=== PATIENT | female | born 1955 | race Caucasian/White ===

== ENCOUNTER 2016-11-23 14:12 | Observation (INO) ==
--- NOTE | 2016-11-23 14:21 | Emergency Department Note ---
Disposition Clinical Impression: Coagulopathy Septic arthritis Qualifiers: Septic arthritis location: hip Septic arthritis organism: due to unspecified organism Laterality: right Qualified Code(s): M00.9 - Pyogenic arthritis, unspecified Disposition: Admitted As Inpatient Condition: Fair Forms: Work/School Release, ED Satisfaction Letter Time of Disposition: 14:31 General Adult HPI - General Chief complaint: ED General Medical Stated complaint: Septic Hip Time Seen by Provider: 11/23/16 14:17 Source: patient, EMS Mode of arrival: EMS Limitations: no limitations Nursing Notes Reviewed: Yes Vital Signs Reviewed: Yes - History of Present Illness HPI Narrative: 61-year-old who has a history of right hip pain was evaluated by orthopedics at [place] they did order an MRI and MRI showed increased bony destructive changes of the right hip. Large right hip joint effusion with surrounding pericapsular muscular edema. Aspiration suggested to exclude septic arthritis. Since white count yesterday was normal her sedimentation rate is significantly elevated as is her C-reactive protein. She was sent here for evaluation patient is on Coumadin for previous episode of A. fib and her INR yesterday was 2.7 we will repeat that today. Pt Subjective Complaint: Hip pain question septic hip Onset (ago): week(s) Location: right, lower extremity Radiation: non-radiation Pain Severity: moderate Quality: aching Consistency: constant Improves with: nothing Worsens with: movement Associated symptoms: Denies: fever/chills - Related Data Home Medications Medication Instructions Recorded Confirmed Multivitamin [Multi-Day Vitamins] 1 each PO DAILY 09/14/16 09/14/16 Pravastatin Sodium 80 mg PO HS 09/14/16 09/14/16 Sertraline [Zoloft] 100 mg PO DAILY 09/14/16 09/14/16 Previous Rx's Medication Instructions Recorded Acetaminophen [Tylenol] 650 mg PO Q6HR PRN #0 tablet 09/19/16 Diltiazem CD (24hr) [Cardizem CD] 300 mg PO DAILY 30 Days 09/19/16 Insulin DETEMIR [Levemir] 20 unit SQ HS [id number] 09/19/16 Insulin LISPRO [HumaLOG] 0 units SQ HS vial 09/19/16 Insulin LISPRO [HumaLOG] 0 units SQ TIDAC vial 09/19/16 Insulin LISPRO [HumaLOG] 7 units SQ TIDWM vial 09/19/16 Nystatin POWDER [Nystop] 1 appl TP BID 30 Days 09/19/16 Omeprazole [PriLOSEC] 20 mg PO DAILY@0630 capsule. 09/19/16 Sertraline [Zoloft] 50 mg PO DAILY tablet 09/19/16 Cyclobenzaprine [Flexeril] 10 mg PO TID@0900,1700,2300 tablet 10/25/16 Gabapentin [Neurontin] 300 mg PO BID #14 capsule 10/25/16 Glimepiride [Amaryl] 3 mg PO DAILY #0 10/25/16 HYDROcodone/Acet 5/325 mg [[place] 1 tab PO Q4HR PRN #40 tablet 10/25/16 5-325 mg] Warfarin [Coumadin] 2 mg PO DAILY@1800 tablet 10/25/16 Warfarin [Coumadin] 5 mg PO DAILY@1800 tablet 10/25/16 Allergies Allergy/AdvReac Type Severity Reaction Status Date / Time metformin Allergy Diarrhea Verified 09/14/16 10:31 Constitutional: Denies: fever, chills, weakness, weight change Eyes: Denies: eye pain, eye discharge, vision change ENT ED: Denies: ear pain, throat pain, dental pain, hearing loss, epistaxis, congestion, dysphagia Cardiovascular: Denies: chest pain, palpitations, dyspnea on exertion, edema, syncope Respiratory: Denies: cough, dyspnea, wheezes, hemoptysis, stridor Gastrointestinal: Denies: abdominal pain, nausea, vomiting, diarrhea, constipation, hematemesis, melena, hematochezia Genitourinary: Denies: dysuria, frequency, hematuria, discharge Musculoskeletal: Reports: arthralgia. Denies: back pain, neck pain, myalgia Integumentary: Denies: rash, abrasion, lesions Neurological: Denies: headache, weakness, numbness, paresthesias, confusion, abnormal gait, vertigo Psychiatric: Denies: anxiety, depression, suicidal thoughts, homicidal thoughts , auditory hallucinations, visual hallucinations Endocrine: Denies: fatigue Hematological/Lymphatic: Denies: easy bleeding, easy bruising Allergic/Immunologic: Denies: facial swelling, urticaria Past Medical History - Past Medical History Medical history: Reports: diabetes, hyperlipidemia, hypertension, other Surgical history: Reports: , carotid endarterectomy, orthopedic, other Psychiatric history: Reports: depression PROTECTIVE SERVICE SPECIALIST history: Reports: no PROTECTIVE SERVICE SPECIALIST history - Social History Smoking Status: Never smoker Smokeless Tobacco Status: No Alcohol use: Reports: rarely Drug use: Reports: none Physical Exam - General Limitations: no limitations General appearance: alert, in no apparent distress - Head Head exam: atraumatic, normocephalic, normal inspection - Eye Eye exam: Present: normal appearance, PERRL, EOMI - ENT ENT exam: normal exam, normal oropharynx, mucous membranes moist - Neck Neck exam: Present: normal inspection, full ROM, trachea midline - Chest Chest inspection: Present: normal inspection, symmetric chest wall rise - Respiratory Respiratory exam: Present: normal lung sounds bilaterally - Cardiovascular Cardiovascular exam: Present: regular rate, normal rhythm, normal heart sounds - Abdominal Exam Abdominal exam: Present: soft, Non-Tender. Absent: tenderness, distention, guarding, rebound, rigidity - Expanded Lower Extremity Exam Hip/Pelvis exam: Present: tenderness, external rotation, internal rotation ( Pain pain) Neurovascular/Tendon exam: Absent: motor deficit, sensory deficit, tendon deficit - Back Exam Back exam: Present: normal inspection, full ROM. Absent: tenderness - Neurological Exam Neurological exam: Present: alert, oriented X3 - Psychiatric Psychiatric exam: Present: normal affect, normal mood - Skin Skin exam: Present: warm, dry, intact, normal color Course - Consultations Consultation #1: Discussed the case with who would like the patient admitted to medicine and have IR tap the hip if septic they will surgically wash it out. Time: 14:29 Consultation #2: I discussed the case with , admit. Time: 14:29 Vital Signs Temperature 98.4 F 11/23/16 14:15 Pulse Rate 90 11/23/16 14:15 Respiratory Rate 18 11/23/16 14:15 Blood Pressure 127/59 11/23/16 14:15 O2 Sat by Pulse Oximetry 95 11/23/16 14:15 Temperature 98.4 F 11/23/16 14:15 Pulse Rate 90 11/23/16 14:15 Respiratory Rate 18 11/23/16 14:15 Blood Pressure 127/59 11/23/16 14:15 O2 Sat by Pulse Oximetry 95 11/23/16 14:15 Oxygen Delivery Oxygen Delivery Room Air Medical Decision Making - Lab Data Result diagrams: 11/23/16 14:27 11/23/16 14:27 Lab Results 11/23/16 11/23/16 11/23/16 Range/Units 14:27 14:27 14:27 WBC 9.1 (4.3-11.1) K/mcL RBC 3.63 L (3.82-4.97) M/mcL Hgb 9.7 L (11.5-15.4) g/dL Hct 32.0 L (35.3-44.9) % MCV 88.2 (83.0-100.0) fL MCH 26.7 L (28.0-33.3) pg MCHC 30.3 L (31.6-35.5) g/dL RDW 16.0 H (11.5-14.5) % Plt Count 417 H (140-400) K/mcL MPV 7.7 L (9.4-12.4) fL Immature Gran % 0.4 (0-4) % Seg Neutrophils % 67.7 % Lymphocytes % 22.7 % Monocytes % 6.6 % Eosinophils % 2.3 % Basophils % 0.3 % Neutrophils # 6.1 (1.6-8.9) K/mcL Lymphocytes # 2.1 (0.6-4.6) K/mcL Monocytes # 0.6 (0.0-1.3) K/mcL Eosinophils # 0.2 (0.0-0.6) K/mcL Basophils # 0.0 (0.0-0.2) K/mcL PT 29.1 H (9.4-12.1) Seconds INR 2.6 APTT 41.1 H (26.0-36.0) Seconds Sodium 140 (136-145) mEq/L Potassium 4.2 (3.5-4.5) mEq/L Chloride 104 (98-109) mEq/L Carbon Dioxide 28 (19-29) mEq/L BUN 23 H (7-20) mg/dL Creatinine 0.60 (0.57-1.11) mg/dL Est GFR ( Amer) > 60 (> 60) Est GFR (Non-Af Amer) > 60 (> 60) BUN/Creatinine Ratio 38 H (6-26) Glucose 112 H (70-99) mg/dL Calculated Osmolality 294 (280-300) Calcium 8.4 L (8.6-10.8) mg/dL
[2016-11-23 14:33] LABS: Basophils % 0.3 %; Eosinophils # 0.2 K/mcL (0.0-0.6); Eosinophils % 2.3 %; Hemoglobin 9.7 g/dL (11.5-15.4); Immature Granulocytes % 0.4 % (0-4); Lymphocytes # 2.1 K/mcL (0.6-4.6); Lymphocytes % 22.7 %; Mean Corpuscular HGB Conc 30.3 g/dL (31.6-35.5); Mean Corpuscular Hemoglobin 26.7 pg (28.0-33.3); Mean Corpuscular Volume 88.2 fL (83.0-100.0); Mean Platelet Volume 7.7 fL (9.4-12.4); Monocytes # 0.6 K/mcL (0.0-1.3); Monocytes % 6.6 %; Neutrophils # 6.1 K/mcL (1.6-8.9); Platelet Count 417 K/mcL (140-400); Red Blood Count 3.63 M/mcL (3.82-4.97); Segmented Neutrophils % 67.7 %
[2016-11-23 14:39] LABS: INR 2.6; Prothrombin Time 29.1 Seconds (9.4-12.1)
[2016-11-23 14:42] LABS: Activated Partial Thrombo Time 41.1 Seconds (26.0-36.0)
[2016-11-23 14:44] LABS: BUN/Creatinine Ratio 38 (6-26); Blood Urea Nitrogen 23 mg/dL (7-20); Calcium 8.4 mg/dL (8.6-10.8); Carbon Dioxide 28 mEq/L (19-29); Chloride 104 mEq/L (98-109); Glucose 112 mg/dL (70-99); Osmolality,Calculated 294 (280-300); Potassium 4.2 mEq/L (3.5-4.5); Sodium 140 mEq/L (136-145); eGFR For African Americans > 60 (> 60); eGFR For Non-African Americans > 60 (> 60)
[2016-11-23] MEDS ORDERED: Piperacillin/Tazobactam 3.375 GM in D5% in Water (Mini-Bag+) 100 ML IVPB ONE (15:00)
[2016-11-23] MEDS ORDERED: Ondansetron 4 MG/2 ML VIAL IVP PRN (16:50)
[2016-11-23] MEDS ORDERED: Acetaminophen 325 MG TABLET PO PRN (16:50)
[2016-11-23] MEDS ORDERED: Mag Hydrox/Al Hydrox/Simeth 30 ML UDC PO PRN (16:50)
[2016-11-23] MEDS ORDERED: *HR* HYDROcodone/Acet 5/325 mg TABLET PO PRN (16:50)
[2016-11-23] MEDS ORDERED: MOM Conc 10 ML UD.LIQ PO PRN (16:50)
[2016-11-23] MEDS ORDERED: Naloxone 0.4 MG/ML INJ IVP PRN (16:50)
[2016-11-23] MEDS ORDERED: D5% in Water 1,000 ML IV PRN (16:54)
[2016-11-23] MEDS ORDERED: 0.9 % Sodium Chloride 1,000 ML IVC SCH (17:00)
--- NOTE | 2016-11-23 17:05 | Internal Med History&Physical ---
<Lesley German - Last Filed: 11/23/16 17:02> Date of Encounter: 11/23/16 Time of Encounter: 16:35 Assessment and Plan (1) Septic arthritis Current visit: Yes Status: Acute Pt has been in an ECF for 1 month for rehab due to septic toe, pneumonia, and a- fib, for which she was inpatient at [facility] for 30 days. She has been complaining of not being able to move her leg since she arrived at the intermediate. R hip MRI from today shows deformity of R femoral head with remodeling of he R acetabulum. Large joint effusion and pericapsular edema, as well as edema in the surrounding musculature, suggestive of septic joint. Pt states that she does not feel pain. WBC 9.1, however CRP was 29 two days ago. Holding Warfarin until INR is less than 1.5 for IR aspiration. Zosyn 3.375g IV q8h Vancomycin 1 gram IV q12 hours Qualifiers: Septic arthritis location: hip Septic arthritis organism: due to unspecified organism Laterality: right Qualified Code(s): M00.9 - Pyogenic arthritis, unspecified (2) Coagulopathy Current visit: Yes Status: Acute INR 2.6. Holding Warfarin until INR less than 1.5 for IR. Warfarin for a-fib. (3) Diabetes mellitus Current visit: No Status: Chronic A1c 6.6% 10/31/16, serum glucose 112 today. Continue Levemir Sliding scale insulin Accucheck achs Diabetic diet Qualifiers: Diabetes mellitus type: type 2 Diabetes mellitus complication status: with skin complications Diabetes mellitus complication detail: with foot ulcer Diabetes mellitus penitentiary insulin use: without penitentiary use Qualified Code( s): E11.621 - Type 2 diabetes mellitus with foot ulcer; L97.509 - Non-pressure chronic ulcer of other part of unspecified foot with unspecified severity (4) Brown-Sequard syndrome Current visit: No Status: Acute Pt states that she does not feel pain to RLE. Denies pain or pressure feeling in hip. Will continue to monitor. Internal Medicine - H&P: HPI Chief complaint: R hip pain x 2 mos Admitted From: Long-term Nursing Facility Plans for Post Hospital Care: Transfer [facility]re Tester Care History of present illness: Ms. Mccarty is a 61 year old female with history of hyperlipidemia, a-fib RVR, R knee replacement, septic arthritis, Brown-Sequard Syndrome. Pt was found to have a septic toe fracture on 09/12/16. during hospitalization she developed pneumonia and a-fib. She was inpatient for 30 days at [place]. Pt was then transferred to [facility] where she has currently been for another 30 days. She has had continuous R hip pain since 09/12 and has not been able to walk or bear weight. She is doing PT/OT at [facility] and is able to stand, but cannot lift leg due to pain. On 11/18/16, pt had R hip xray that showed a possible fracture and recommend correlation with CT. Todays MRI shows edema and degenerative changes to R hip joint. Pt has Brown-Sequard Syndrome and states that she cannot feel pain in her RLE at all, but knew there was something wrong when she could not lift it. Past Med Surg Social Fam HX - Past Medical History Medical history: diabetes, hyperlipidemia, hypertension, other Psychiatric history: depression - Past Surgical History Surgical History: , carotid endarterectomy, orthopedic, other - Social History Smoking Status: Never smoker Smokeless Tobacco Status: No Alcohol use: rarely Drug use: none - Family History Father Hx Family Cardiac Disorders: Yes (CAD) Hx Family Endocrine Disorder: Yes (Diabetes) Mother Hx Family Cardiac Disorders: Yes (HTN) Internal Medicine - H&P: Meds Multivitamin [Multi-Day Vitamins] 1 each PO DAILY 09/14/16 [History] Pravastatin Sodium 80 mg PO HS 09/14/16 [History] Diltiazem CD (24hr) [Cardizem CD] 300 mg PO DAILY 30 Days 09/19/16 [Rx] Insulin DETEMIR [Levemir] 20 unit SQ HS [id number] 09/19/16 [Rx] Nystatin POWDER [Nystop] 1 appl TP BID 30 Days 09/19/16 [Rx] Cyclobenzaprine [Flexeril] 10 mg PO TID@0900,1700,2300 tablet 10/25/16 [Rx] Gabapentin [Neurontin] 300 mg PO BID #14 capsule 10/25/16 [Rx] Glimepiride [Amaryl] 3 mg PO DAILY #0 10/25/16 [Rx] HYDROcodone/Acet 5/325 mg [[place] 5-325 mg] 1 tab PO Q4HR PRN #40 tablet [Rx] Warfarin [Coumadin] 2 mg PO DAILY@1800 tablet 10/25/16 [Rx] Warfarin [Coumadin] 5 mg PO DAILY@1800 tablet 10/25/16 [Rx] Acetaminophen [Tylenol] 650 mg PO Q6HR PRN 11/23/16 [History] Dimethicone/Zinc Oxide [Inzo Zinc Oxide Barrier Cream] 1 appl TP BID 11/23/16 [ History] Docusate [Colace] 100 mg PO BID 11/23/16 [History] GuaiFENesin/Dextromethorphan [Robafen Dm Cgh-Chest Alexis Syrp] 10 ml PO TID PRN 11/23/16 [History] Insulin LISPRO [HumaLOG] 2 - 10 units SQ ACHS 11/23/16 [History] Magnesium Hydroxide [Milk of Magnesia] 2,400 mg PO DAILY PRN 11/23/16 [History] Omeprazole [PriLOSEC] 20 mg PO DAILY 11/23/16 [History] Ondansetron HCl [Zofran] 4 mg PO Q4H PRN 11/23/16 [History] Optifoam 1 appl TP Q72H 11/23/16 [History] Sertraline [Zoloft] 150 mg PO DAILY 11/23/16 [History] Allergies metformin Allergy (Verified 09/14/16 10:31) Diarrhea All Systems PM: A 10-system review of systems was performed and is negative for pertinent findings except as documented above in the HPI. - Constitutional Constitutional: no chills, no fatigue, no fever(s), no falls, no weakness - Cardiovascular Cardiovascular ROS IM: edema, no chest pain, no dyspnea - Respiratory Respiratory: no dyspnea, no wheezing, no pain on inspiration, no chest congestion, no excessive phlegm production, no change in phlegm color, no pain with cough - Gastrointestinal Gastrointestinal: no diarrhea, no nausea, no vomiting - Genitourinary Genitourinary: no dysuria - Musculoskeletal Musculoskeletal ROS IM: limited range of motion, muscle weakness, myalgias - Integumentary Integumentary IM: no rash - Constitutional Vitals: Temp Pulse Resp BP Pulse Ox 98.4 F 90 16 132/73 97 11/23/16 14:15 11/23/16 15:41 11/23/16 16:21 11/23/16 16:21 11/23/16 15:41 General appearance: Present: cooperative, A&O X 3, pleasant, answers questions appropriately Exam: Pt is tearful throughout exam, is frustrated with having to stay in the hospital and wants to go home. - Head Head exam: Present: normal inspection - Neck Neck exam general surgery: Present: normal inspection. Absent: lymphadenopathy , tenderness - Respiratory Respiratory exam: Present: decreased breath sounds, CTAB. Absent: chest wall tenderness, respiratory distress, rhonchi, stridor, wheezes - Cardiovascular Cardiovascular exam: Present: RRR, +S1, +S2. Absent: diastolic murmur, systolic murmur - GI/Abdominal GI/Abdominal exam: Present: distended, normal bowel sounds, soft. Absent: hepatomegaly, tenderness - Extremities Exam Extremities exam: Present: pedal edema, warm, radial pulses palpable and symetrical. Absent: cyanotic, joint swelling, normal capillary refill, normal inspection, tenderness Additional comments: Pt has +3 edema to BLE and palpable pedal pulses sofie. - Neurological Exam Neurological exam: Present: alert, oriented X3. Absent: strengths equal and symetr throughout, facial droop, speech deficit Internal Med - H&P Results - Labs CBC & Chem 7: 11/23/16 14:27 11/23/16 14:27 <Jalen Mack P - Last Filed: 11/23/16 18:40> Date of Encounter: 11/23/16 Internal Medicine - H&P: HPI History of present illness: Ms. Mccarty is a 61 year old female All Systems PM: A 10-system review of systems was performed and is negative for pertinent findings except as documented above in the HPI. - Constitutional Vitals: Temp Pulse Resp BP Pulse Ox 98.2 F 87 18 121/68 92 L 11/23/16 17:25 11/23/16 17:25 11/23/16 17:25 11/23/16 17:25 11/23/16 17:25 Internal Med - H&P Results - Labs CBC & Chem 7: 11/23/16 14:27 11/23/16 14:27 - Attending Attestation I examined this patient and my medical decision-making was reviewed with the SIDE STAPLER/PA/Advanced Practice Nurse/Resident Physician. I agree with the documented findings, disposition and treatment plan as described except to the extent set forth below. IV Abx and please call ID if available INR reversal IR guided aspiration if not adequate clearance then ortho will take her to OR ( Dr Ramirez aware)
[2016-11-23] MEDS: Vancomycin 2,000 MG in D5% in Water 500 ML IVPB SCH (18:56)
[2016-11-23] MEDS: [UNRECOGNIZED DRUG - SUPPLY] TP SCH (18:57)
[2016-11-23 20:21] LABS: INR 2.5
[2016-11-23] MEDS: Insulin DETEMIR 100 UNIT/ML X5UNITS SQ SCH (21:49)
[2016-11-23] MEDS: Gabapentin 300 MG CAPSULE PO SCH (21:49)
[2016-11-23] MEDS: Desitin (Zinc Oxide) 56 GM TUBE TP SCH (21:50)
[2016-11-23] MEDS: Nystatin POWDER 30 GM BOTTLE TP SCH (21:50)
[2016-11-23] MEDS: Piperacillin/Tazobactam 3.375 GM in D5% in Water (Mini-Bag+) 100 ML IVPB SCH (21:51)
[2016-11-23] MEDS ORDERED: 0.9 % Sodium Chloride 250 ML ONE (23:18)
[2016-11-24] MEDS ORDERED: 0.9 % Sodium Chloride 250 ML ONE (03:22)
[2016-11-24] MEDS: Piperacillin/Tazobactam 3.375 GM in D5% in Water (Mini-Bag+) 100 ML IVPB SCH ×3 (05:55→22:28)
[2016-11-24] MEDS: Vancomycin 2,000 MG in D5% in Water 500 ML IVPB SCH (05:55)
[2016-11-24 06:49] LABS: Prothrombin Time 22.2 Seconds (9.4-12.1)
[2016-11-24 07:07] LABS: BUN/Creatinine Ratio 32 (6-26); Blood Urea Nitrogen 17 mg/dL (7-20); Calcium 8.6 mg/dL (8.6-10.8); Carbon Dioxide 28 mEq/L (19-29); Chloride 105 mEq/L (98-109); Glucose 105 mg/dL (70-99); Osmolality,Calculated 294 (280-300); Potassium 3.9 mEq/L (3.5-4.5); Sodium 141 mEq/L (136-145); eGFR For African Americans > 60 (> 60); eGFR For Non-African Americans > 60 (> 60)
[2016-11-24 07:43] LABS: Basophils % 0.5 %; Eosinophils # 0.3 K/mcL (0.0-0.6); Hematocrit 30.4 % (35.3-44.9); Hemoglobin 9.4 g/dL (11.5-15.4); Immature Granulocytes % 0.5 % (0-4); Lymphocytes # 1.9 K/mcL (0.6-4.6); Lymphocytes % 22.9 %; Mean Corpuscular HGB Conc 30.9 g/dL (31.6-35.5); Mean Corpuscular Hemoglobin 27.1 pg (28.0-33.3); Mean Corpuscular Volume 87.6 fL (83.0-100.0); Mean Platelet Volume 8.3 fL (9.4-12.4); Monocytes # 0.6 K/mcL (0.0-1.3); Monocytes % 7.6 %; Neutrophils # 5.4 K/mcL (1.6-8.9); Platelet Count 446 K/mcL (140-400); Red Blood Count 3.47 M/mcL (3.82-4.97); Segmented Neutrophils % 65.5 %
[2016-11-24] MEDS: Gabapentin 300 MG CAPSULE PO SCH ×2 (08:03→22:29)
[2016-11-24] MEDS: Nystatin POWDER 30 GM BOTTLE TP SCH ×2 (08:05→22:29)
[2016-11-24] MEDS: Desitin (Zinc Oxide) 56 GM TUBE TP SCH ×2 (08:05→22:29)
[2016-11-24] MEDS: Diltiazem CD (24hr) 300 MG CAPSULE PO SCH (08:05)
--- NOTE | 2016-11-24 13:22 | Orthopedic Consult Note ---
Date of Encounter: 11/24/16 Time of Encounter: 16:29 Assessment and Plan (1) Avascular necrosis of bone of hip Current Visit: Yes Status: Acute Patient's symptoms do present with possible septic arthritis of her Right hip - continue to recommend aspiration for confirmation. 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 Discussed with hospitalist - plan to continue to get INR therapeautic for aspiration tomorrow. Gram stain, cultures, and cell count needed. Patient is not a good surgical candidate for hip surgery; and recommendations would continue to be long-term IV antibiotics pending results of aspiration. I have discussed this with as well. May consider Infectious disease input considering her significant history of sepsis and infection. Continue with ROM exercises, and pain control. Repeat ESR/CRP today. Continue to monitor. Qualifiers: Laterality: right Qualified Code(s): M87.051 - Idiopathic aseptic necrosis of right femur (2) Elevated INR Current Visit: Yes Status: Acute (3) Brown-Sequard syndrome Current Visit: No Status: Acute Pt states that she does not feel pain to RLE. Denies pain or pressure feeling in hip. Will continue to monitor. (4) Morbid obesity with BMI of 70 and over, adult Current Visit: No Status: Acute (5) Diabetes mellitus Current Visit: No Status: Chronic A1c 6.6% 10/31/16, serum glucose 112 today. Continue Levemir Sliding scale insulin Accucheck achs Diabetic diet Qualifiers: Diabetes mellitus type: type 2 Diabetes mellitus complication status: with skin complications Diabetes mellitus complication detail: with foot ulcer Diabetes mellitus equipment operator intermodal yard insulin use: without equipment operator intermodal yard use Qualified Code( s): E11.621 - Type 2 diabetes mellitus with foot ulcer; L97.509 - Non-pressure chronic ulcer of other part of unspecified foot with unspecified severity History of Present Illness Chief complaint: Difficulty with Ambulation HPI: Ms. Mccarty is a 61 year old female, well known to our orthopedic practice. She has Brown Sequard's Syndrome, affected sensation and mobility to her RLE. She reports her right lower extremity started to become painful after a fall approx 4 weeks ago. She has been seeing as an outpatient for approx 4 weeks due to a suspected fall, and an decreased ability to ambulate. Her primary complaint at that time was her knee; however after she failed to improve, and imaging studies show no abnormality with her knee, further work up was performed including the hip. 11/22/16 - Hip XRAY was obtained - Severe dysplasia and deformity of the right hip joint involving the femoral head and acetabulum which is progressed since the previous exam. Evaluation of the proximal femur is limited by patient body habitus. Progressive flattening of the femoral head and concern for mildly impacted fracture at the femoral head neck junction as above. Recommend further evaluation with CT. Last Hip XRAY 03/24/15 - showed Severe right hip dysplasia and right hip joint osteoarthritis. This is not a new process; however it has significantly worsened. She has noted swelling and warmth to hip region as well. Hip MRI: Increased bony destructive changes at the right hip. Large right hip joint effusion with surrounding pericapsular and muscular edema. Aspiration is suggested to exclude septic arthritis. Underlying chronic right hip deformity. ESR > 130, WBC Normal. Patient was supposed to have hip aspirated today to rule out septic arthritis; however her INR remained elevated at 2.0 today and aspiration unable to be performed. Goal will be to do tomorrow once INR trends down. She denies productive cough, chest pain, shortness of breath, headache, abdominal pain, changes in bowel function. She has a hx of DMII, depression, brown-sequard, morbid obesity, sepsis. She was admitted to [facility] on 09/11/16 for Sepsis, She has had Positive Blood cultures - GBS - and has been on aggressive ABX IV therapy. Infectious processes include urinary as well as Right knee prosthesis. She has a history of a Right Distal Femur replacement with from 03/2015 due to a severe distal femur fracture. She had multiple issues with her incision healing, and was placed on long-term IV Vancomycin after failing oral antibiotics for approximately 2-3 months. She no-showed multiple f/up appointments, and as of 08/2015, she was unable to be reached via phone. Past Med Surg Social Fam HX - Past Medical History Medical history: diabetes, hyperlipidemia, hypertension, other Psychiatric history: depression - Past Surgical History Surgical History: , carotid endarterectomy, orthopedic, other - Social History Smoking Status: Never smoker Smokeless Tobacco Status: No Alcohol use: rarely Drug use: none - Family History Father Hx Family Cardiac Disorders: Yes (CAD) Hx Family Endocrine Disorder: Yes (Diabetes) Mother Hx Family Cardiac Disorders: Yes (HTN) Medications and Allergies Multivitamin [Multi-Day Vitamins] 1 each PO DAILY 09/14/16 [History] Pravastatin Sodium 80 mg PO HS 09/14/16 [History] Diltiazem CD (24hr) [Cardizem CD] 300 mg PO DAILY 30 Days 09/19/16 [Rx] Insulin DETEMIR [Levemir] 20 unit SQ HS [id number] 09/19/16 [Rx] Nystatin POWDER [Nystop] 1 appl TP BID 30 Days 09/19/16 [Rx] Cyclobenzaprine [Flexeril] 10 mg PO TID@0900,1700,2300 tablet 10/25/16 [Rx] Gabapentin [Neurontin] 300 mg PO BID #14 capsule 10/25/16 [Rx] Glimepiride [Amaryl] 3 mg PO DAILY #0 10/25/16 [Rx] HYDROcodone/Acet 5/325 mg [[place] 5-325 mg] 1 tab PO Q4HR PRN #40 tablet [Rx] Warfarin [Coumadin] 2 mg PO DAILY@1800 tablet 10/25/16 [Rx] Warfarin [Coumadin] 5 mg PO DAILY@1800 tablet 10/25/16 [Rx] Acetaminophen [Tylenol] 650 mg PO Q6HR PRN 11/23/16 [History] Dimethicone/Zinc Oxide [Inzo Zinc Oxide Barrier Cream] 1 appl TP BID 11/23/16 [ History] Docusate [Colace] 100 mg PO BID 11/23/16 [History] GuaiFENesin/Dextromethorphan [Robafen Dm Cgh-Chest Alexis Syrp] 10 ml PO TID PRN 11/23/16 [History] Insulin LISPRO [HumaLOG] 2 - 10 units SQ ACHS 11/23/16 [History] Magnesium Hydroxide [Milk of Magnesia] 2,400 mg PO DAILY PRN 11/23/16 [History] Omeprazole [PriLOSEC] 20 mg PO DAILY 11/23/16 [History] Ondansetron HCl [Zofran] 4 mg PO Q4H PRN 11/23/16 [History] Optifoam 1 appl TP Q72H 11/23/16 [History] Sertraline [Zoloft] 150 mg PO DAILY 11/23/16 [History] Allergies metformin Allergy (Verified 09/14/16 10:31) Diarrhea All Systems Reviewed: A 10-system review of systems was performed and is negative for pertinent findings except as documented above in the HPI. - Constitutional Constitutional: as per HPI - Cardiovascular Cardiovascular: as per HPI - Respiratory Respiratory: as per HPI - Musculoskeletal Musculoskeletal: abnormal gait, back pain, joint swelling, limited range of motion, neck pain, numbness, radiating pain into limb, stiffness, tingling Physical Exam - Constitutional Vitals: Temp Pulse Resp BP Pulse Ox 98.0 F 78 18 134/82 96 11/24/16 11:21 11/24/16 11:21 11/24/16 11:21 11/24/16 11:21 11/24/16 11:21 Exam: Right Hip: Induration along lateral aspect of hip; warmth noted; no wound or lesions noted ; erythema to lateral aspect of hip - Hip right Gait: other (nonambulatory) Tenderness with palpation: none (Brown Sequards syndrome - no sensation to hip region) ROM: extension: abnormal ROM: flexion: abnormal ROM: abduction: abnormal ROM: adduction: abnormal ROM: internal rotation: abnormal ROM: external rotation: abnormal Results - Labs Result Diagrams: 11/24/16 06:24 11/24/16 06:24 Labs: Abnormal lab results RBC 3.47 M/mcL (3.82-4.97) L 11/24/16 06:24 Hgb 9.4 g/dL (11.5-15.4) L 11/24/16 06:24 Hct 30.4 % (35.3-44.9) L 11/24/16 06:24 MCH 27.1 pg (28.0-33.3) L 11/24/16 06:24 MCHC 30.9 g/dL (31.6-35.5) L 11/24/16 06:24 RDW 16.0 % (11.5-14.5) H 11/24/16 06:24 Plt Count 446 K/mcL (140-400) H 11/24/16 06:24 MPV 8.3 fL (9.4-12.4) L 11/24/16 06:24 PT 22.2 Seconds (9.4-12.1) H 11/24/16 06:24 APTT 41.1 Seconds (26.0-36.0) H 11/23/16 14:27 Creatinine 0.53 mg/dL (0.57-1.11) L 11/24/16 06:24 BUN/Creatinine Ratio 32 (6-26) H 11/24/16 06:24 Glucose 105 mg/dL (70-99) H 11/24/16 06:24 POC Glucose 115 (58-89) H 11/24/16 06:59 H & H 11/24/16 Range/Units 06:24 Hgb 9.4 L (11.5-15.4) g/dL Hct 30.4 L (35.3-44.9) % All other labs normal. - Diagnostic results Hip x-ray: report reviewed, image reviewed Hip MRI: report reviewed, image reviewed Consult Discharge Plan - Plan Referrals: [facility] [place],David Espinosa MD [Primary Care Provider] -
--- NOTE | 2016-11-24 17:06 | Internal Med Progress Note ---
Date of Encounter: 11/24/16 Time of Encounter: 17:03 - Assessment and plan (1) Septic arthritis Current Visit: Yes Status: Acute Assessment and plan: R hip MRI shows deformity of R femoral head with remodeling of he R acetabulum. Large joint effusion and pericapsular edema, as well as edema in the surrounding musculature, suggestive of septic joint. 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 planned for IR guided joint tapping, but will possibly need IV antibiotics regardless of the aspiration results given that she was on IV antibiotics Zosyn 3.375g IV q8h Vancomycin 1 gram IV q12 hours Qualifiers: Septic arthritis location: hip Septic arthritis organism: due to unspecified organism Laterality: right Qualified Code(s): M00.9 - Pyogenic arthritis, unspecified (2) Atrial fibrillation Current Visit: Yes Status: Acute Assessment and plan: in sinus rhytm at present coumadin has been held for the IR procedure. Qualifiers: Atrial fibrillation type: paroxysmal Qualified Code(s): I48.0 - Paroxysmal atrial fibrillation (3) Elevated INR Current Visit: Yes Status: Acute Assessment and plan: INR favored to be <1.5 for the procedure was given 2 units of FFP, will repeat coags tomm am. 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 given brown sequard syndrome, she does not feel any pain. admitted for possible septic arthritis. - Constitutional Vitals: Temp Pulse Resp BP Pulse Ox 98.3 F 76 16 137/84 95 11/24/16 14:08 11/24/16 14:08 11/24/16 14:08 11/24/16 14:08 11/24/16 14:08 General appearance: Present: cooperative, A&O X 3, pleasant, answers questions appropriately Exam: - Head Head exam: Present: normal inspection - Neck Neck exam general surgery: Present: normal inspection. Absent: lymphadenopathy , tenderness - Respiratory Respiratory exam: Present: decreased breath sounds, CTAB. Absent: chest wall tenderness, respiratory distress, rhonchi, stridor, wheezes - Cardiovascular Cardiovascular exam: Present: RRR, +S1, +S2. Absent: diastolic murmur, systolic murmur - GI/Abdominal GI/Abdominal exam: Present: distended, normal bowel sounds, soft. Absent: hepatomegaly, tenderness - Extremities Exam Extremities exam: Present: pedal edema, warm, radial pulses palpable and symetrical. Absent: cyanotic, joint swelling, normal capillary refill, normal inspection, tenderness Additional comments: Pt has +3 edema to BLE and palpable pedal pulses sofie. - Neurological Exam Neurological exam: Present: alert, oriented X3. Absent: strengths equal and symetr throughout, facial droop, speech deficit Internal Medicine: Result - Labs CBC & Chem 7: 11/24/16 06:24 11/24/16 06:24 Labs: Short CBC 11/24/16 Range/Units 06:24 WBC 8.3 (4.3-11.1) K/mcL Hgb 9.4 L (11.5-15.4) g/dL Hct 30.4 L (35.3-44.9) % Plt Count 446 H (140-400) K/mcL Neutrophils # 5.4 (1.6-8.9) K/mcL BMP 11/24/16 06:24 Sodium 141 Potassium 3.9 Chloride 105 Carbon Dioxide 28 BUN 17 Creatinine 0.53 L Glucose 105 H Calcium 8.6 - ABG Interpretation ABG results: PT/INR, D-dimer PT 22.2 Seconds (9.4-12.1) H 11/24/16 06:24 - VTE Documentation of Mechanical Device: Venous foot pump, device Consult Discharge Plan - Plan Referrals: David Fam MD [Primary Care Provider] -
[2016-11-24] MEDS: Vancomycin 1,750 MG in D5% in Water 500 ML IVPB SCH (17:11)
[2016-11-24] MEDS: Insulin DETEMIR 100 UNIT/ML X5UNITS SQ SCH (22:31)
[2016-11-25] MEDS: Piperacillin/Tazobactam 3.375 GM in D5% in Water (Mini-Bag+) 100 ML IVPB SCH ×3 (05:58→22:11)
[2016-11-25 07:09] LABS: INR 1.7; Prothrombin Time 18.8 Seconds (9.4-12.1)
[2016-11-25] MEDS ORDERED: Lidocaine -MPF 1% 5 ML AMPUL INFILT ONE (08:16)
[2016-11-25 08:19] LABS: Basophils % 0.5 %; Eosinophils # 0.2 K/mcL (0.0-0.6); Eosinophils % 2.7 %; Hematocrit 31.8 % (35.3-44.9); Hemoglobin 9.5 g/dL (11.5-15.4); Immature Granulocytes % 0.4 % (0-4); Lymphocytes # 1.9 K/mcL (0.6-4.6); Mean Corpuscular HGB Conc 29.9 g/dL (31.6-35.5); Mean Corpuscular Hemoglobin 26.7 pg (28.0-33.3); Mean Corpuscular Volume 89.3 fL (83.0-100.0); Mean Platelet Volume 8.1 fL (9.4-12.4); Monocytes # 0.6 K/mcL (0.0-1.3); Monocytes % 7.5 %; Neutrophils # 5.1 K/mcL (1.6-8.9); Platelet Count 585 K/mcL (140-400); Red Blood Count 3.56 M/mcL (3.82-4.97); Segmented Neutrophils % 64.9 %
[2016-11-25] MEDS: Diltiazem CD (24hr) 300 MG CAPSULE PO SCH (08:23)
[2016-11-25] MEDS: Gabapentin 300 MG CAPSULE PO SCH ×2 (08:23→22:12)
[2016-11-25] MEDS: Vancomycin 1,750 MG in D5% in Water 500 ML IVPB SCH ×2 (08:24→17:41)
[2016-11-25] MEDS: Desitin (Zinc Oxide) 56 GM TUBE TP SCH ×2 (08:27→22:13)
[2016-11-25] MEDS: Nystatin POWDER 30 GM BOTTLE TP SCH ×2 (08:27→22:12)
[2016-11-25 09:01] LABS: BUN/Creatinine Ratio 24 (6-26); Blood Urea Nitrogen 16 mg/dL (7-20); Calcium 8.8 mg/dL (8.6-10.8); Carbon Dioxide 26 mEq/L (19-29); Chloride 106 mEq/L (98-109); Glucose 113 mg/dL (70-99); Osmolality,Calculated 298 (280-300); Potassium 4.1 mEq/L (3.5-4.5); Sodium 143 mEq/L (136-145); eGFR For African Americans > 60 (> 60); eGFR For Non-African Americans > 60 (> 60)
--- NOTE | 2016-11-25 16:37 | Internal Med Progress Note ---
Date of Encounter: 11/25/16 Time of Encounter: 16:35 - Assessment and plan (1) Septic arthritis Current Visit: Yes Status: Acute Assessment and plan: R hip MRI shows deformity of R femoral head with remodeling of he R acetabulum. Large joint effusion and pericapsular edema, as well as edema in the surrounding musculature, suggestive of septic joint. 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 s/p IR guided joint tapping, but will possibly need IV antibiotics regardless of the aspiration results given that she was on IV antibiotics Zosyn 3.375g IV q8h Vancomycin 1 gram IV q12 hours. will need picc line placement and follow culture results. Qualifiers: Septic arthritis location: hip Septic arthritis organism: due to unspecified organism Laterality: right Qualified Code(s): M00.9 - Pyogenic arthritis, unspecified (2) Atrial fibrillation Current Visit: Yes Status: Acute Assessment and plan: in sinus rhytm at present to restart coumadin tonight. 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 given brown sequard syndrome, she does not feel any pain. admitted for possible septic arthritis. s/p aspiration of synovial fluid today. - Constitutional Vitals: Temp Pulse Resp BP Pulse Ox 97.8 F 76 14 101/68 97 11/25/16 16:28 11/25/16 16:28 11/25/16 16:28 11/25/16 16:28 11/25/16 16:28 General appearance: Present: cooperative, A&O X 3, pleasant, answers questions appropriately Exam: Head Head exam: Present: normal inspection - Neck Neck exam general surgery: Present: normal inspection. Absent: lymphadenopathy , tenderness - Respiratory Respiratory exam: Present: decreased breath sounds, CTAB. Absent: chest wall tenderness, respiratory distress, rhonchi, stridor, wheezes - Cardiovascular Cardiovascular exam: Present: RRR, +S1, +S2. Absent: diastolic murmur, systolic murmur - GI/Abdominal GI/Abdominal exam: Present: distended, normal bowel sounds, soft. Absent: hepatomegaly, tenderness - Extremities Exam Extremities exam: Present: pedal edema, warm, radial pulses palpable and symetrical. Absent: cyanotic, joint swelling, normal capillary refill, normal inspection, tenderness Additional comments: Pt has +3 edema to BLE and palpable pedal pulses sofie. - Neurological Exam Neurological exam: Present: alert, oriented X3. Absent: strengths equal and symetr throughout, facial droop, speech deficit Internal Medicine: Result - Labs CBC & Chem 7: 11/25/16 06:27 11/25/16 06:27 Labs: Short CBC 11/25/16 Range/Units 06:27 WBC 7.8 (4.3-11.1) K/mcL Hgb 9.5 L (11.5-15.4) g/dL Hct 31.8 L (35.3-44.9) % Plt Count 585 H (140-400) K/mcL Neutrophils # 5.1 (1.6-8.9) K/mcL BMP 11/25/16 06:27 Sodium 143 Potassium 4.1 Chloride 106 Carbon Dioxide 26 BUN 16 Creatinine 0.66 Glucose 113 H Calcium 8.8 - ABG Interpretation ABG results: PT/INR, D-dimer PT 18.8 Seconds (9.4-12.1) H 11/25/16 06:27 - Impressions Impressions Joint Aspiration/Injection 11/25/16 08:14 IMPRESSION: Multiple attempts were made with no aspiration of synovial fluid. Approximately 3 mm of dark blood was aspirated from one approach and the fluid was placed in a vial and will be sent to the laboratory for culture. D/ / 11/25/2016 16:09:23 Merrill Earl MD / liana Interpreting Provider: Merrill Earl MD - VTE Documentation of Mechanical Device: Venous foot pump, device Consult Discharge Plan - Plan [place] [facility] [place] [Primary Care Provider] -
[2016-11-25] MEDS ORDERED: *HR* LORazepam 2 MG/ML VIAL IVP PRN (17:56)
[2016-11-25] MEDS ORDERED: *HR* Warfarin 5 MG TABLET PO SCH (18:00)
[2016-11-25] MEDS: Insulin DETEMIR 100 UNIT/ML X5UNITS SQ SCH (22:14)
[2016-11-26 04:29] LABS: Basophils % 0.5 %; Eosinophils # 0.2 K/mcL (0.0-0.6); Eosinophils % 2.9 %; Hematocrit 30.4 % (35.3-44.9); Hemoglobin 9.3 g/dL (11.5-15.4); Immature Granulocytes % 0.4 % (0-4); Lymphocytes # 1.9 K/mcL (0.6-4.6); Lymphocytes % 23.1 %; Mean Corpuscular HGB Conc 30.6 g/dL (31.6-35.5); Mean Corpuscular Hemoglobin 26.8 pg (28.0-33.3); Mean Corpuscular Volume 87.6 fL (83.0-100.0); Mean Platelet Volume 8.2 fL (9.4-12.4); Monocytes # 0.7 K/mcL (0.0-1.3); Monocytes % 8.2 %; Neutrophils # 5.3 K/mcL (1.6-8.9); Platelet Count 426 K/mcL (140-400); Red Blood Count 3.47 M/mcL (3.82-4.97); Red Cell Distribution Width 16.1 % (11.5-14.5); Segmented Neutrophils % 64.9 %
[2016-11-26] MEDS: Piperacillin/Tazobactam 3.375 GM in D5% in Water (Mini-Bag+) 100 ML IVPB SCH ×2 (04:29→12:35)
[2016-11-26 04:42] LABS: BUN/Creatinine Ratio 26 (6-26); Blood Urea Nitrogen 15 mg/dL (7-20); Calcium 8.6 mg/dL (8.6-10.8); Carbon Dioxide 27 mEq/L (19-29); Chloride 105 mEq/L (98-109); Glucose 104 mg/dL (70-99); Osmolality,Calculated 291 (280-300); Potassium 3.9 mEq/L (3.5-4.5); Sodium 140 mEq/L (136-145); eGFR For African Americans > 60 (> 60); eGFR For Non-African Americans > 60 (> 60)
[2016-11-26] MEDS: Vancomycin 1,750 MG in D5% in Water 500 ML IVPB SCH (05:27)
[2016-11-26] MEDS: Diltiazem CD (24hr) 300 MG CAPSULE PO SCH (09:29)
[2016-11-26] MEDS: Gabapentin 300 MG CAPSULE PO SCH (09:29)
[2016-11-26] MEDS: Desitin (Zinc Oxide) 56 GM TUBE TP SCH (09:30)
[2016-11-26] MEDS: Nystatin POWDER 30 GM BOTTLE TP SCH (09:30)
[2016-11-26 15:10] VITALS: BP 154/68
--- NOTE | 2016-11-26 15:44 | Discharge Summary ---
Date of Encounter: 11/26/16 Time of Encounter: 15:41 - Discharge Diagnosis (1) Septic arthritis Priority: Primary Status: Acute Qualifiers: Septic arthritis location: hip Septic arthritis organism: due to unspecified organism Laterality: right Qualified Code(s): M00.9 - Pyogenic arthritis, unspecified (2) Atrial fibrillation Priority: Secondary Status: Acute Qualifiers: Atrial fibrillation type: paroxysmal Qualified Code(s): I48.0 - Paroxysmal atrial fibrillation (3) Elevated INR Priority: Secondary Status: Acute (4) Brown-Sequard syndrome Priority: Secondary Status: Acute - Discharge Medications Prescriptions: HYDROcodone/Acet 5/325 mg [[place] 5-325 mg] 1 tab PO Q4HR PRN #30 tablet PRN Reason: Moderate Pain (4-6) Cefepime HCl [Maxipime] 1,000 mg IVPB Q8HR 14 Days Vancomycin [Vancocin] 1,000 mg IV Q12HR 28 Days Home Medications: Multivitamin [Multi-Day Vitamins] 1 each PO DAILY 09/14/16 [History] Pravastatin Sodium 80 mg PO HS 09/14/16 [History] Diltiazem CD (24hr) [Cardizem CD] 300 mg PO DAILY 30 Days 09/19/16 [Rx] Insulin DETEMIR [Levemir] 20 unit SQ HS [id number] 09/19/16 [Rx] Nystatin POWDER [Nystop] 1 appl TP BID 30 Days 09/19/16 [Rx] Cyclobenzaprine [Flexeril] 10 mg PO TID@0900,1700,2300 tablet 10/25/16 [Rx] Gabapentin [Neurontin] 300 mg PO BID #14 capsule 10/25/16 [Rx] Glimepiride [Amaryl] 3 mg PO DAILY #0 10/25/16 [Rx] HYDROcodone/Acet 5/325 mg [[place] 5-325 mg] 1 tab PO Q4HR PRN #40 tablet [Rx] Warfarin [Coumadin] 2 mg PO DAILY@1800 tablet 10/25/16 [Rx] Warfarin [Coumadin] 5 mg PO DAILY@1800 tablet 10/25/16 [Rx] Acetaminophen [Tylenol] 650 mg PO Q6HR PRN 11/23/16 [History] Dimethicone/Zinc Oxide [Inzo Zinc Oxide Barrier Cream] 1 appl TP BID 11/23/16 [ History] Docusate [Colace] 100 mg PO BID 11/23/16 [History] GuaiFENesin/Dextromethorphan [Robafen Dm Cgh-Chest Alexis Syrp] 10 ml PO TID PRN 11/23/16 [History] Insulin LISPRO [HumaLOG] 2 - 10 units SQ ACHS 11/23/16 [History] Magnesium Hydroxide [Milk of Magnesia] 2,400 mg PO DAILY PRN 11/23/16 [History] Omeprazole [PriLOSEC] 20 mg PO DAILY 11/23/16 [History] Ondansetron HCl [Zofran] 4 mg PO Q4H PRN 11/23/16 [History] Optifoam 1 appl TP Q72H 11/23/16 [History] Sertraline [Zoloft] 150 mg PO DAILY 11/23/16 [History] Cefepime HCl [Maxipime] 1,000 mg IVPB Q8HR 14 Days 11/26/16 [Rx] HYDROcodone/Acet 5/325 mg [[place] 5-325 mg] 1 tab PO Q4HR PRN #30 tablet [Rx] Vancomycin [Vancocin] 1,000 mg IV Q12HR 28 Days 11/26/16 [Rx] Allergies/Adverse Reactions: Allergies metformin Allergy (Verified 09/14/16 10:31) Diarrhea Procedures/tests Complete & Pending: Procedures Performed prior 72 hours Category Date Time Status CT guided aspiration [CT] Routine Cat Scan 11/25/16 Completed Date of admission: 11/23/16 15:59 Primary care physician: David Fam MD Consults: 11/23/16 17:06 Consult to Grain Merchandiser [CONS] Routine Reason for SW Consult: nursing consult - from [facility] 11/24/16 08:12 Consult to Orthopedic Surgery [CONS] Routine Consulting Provider: [facility] Reason for Consult: please evaluate this patinet with septic joint for further intervention. Thank you Call Completed: Yes 11/25/16 08:16 Consult to Invasive Line Access Team [CONS] Routine Reason for Consult: Picc Line Insertion Line Type: PICC Discharging clinician: Brian Haines Anticipated date of discharge: 11/26/16 - Patient Status Disposition: Transfer SNF Condition: Fair Functional capacity at discharge: wheelchair bound Overall status at discharge: patient is progressing back to baseline - Discharge Instructions Follow Up With: Geo Ramirez MD [Partnered Physician] - (Web request made by RN for 2 weeks ) Additional Instructions: Patient will need Vancomycin dosing by the pharmacy according to the vanco trough levels. - Diet and Activity Activity: resume usual activities as tolerated Diet: advance to your usual diet Interval History: Pt has been in an ECF for 1 month for rehab due to septic toe, pneumonia, and a- fib, for which she was inpatient at [facility] for 30 days. She has been complaining of not being able to move her leg since she arrived at the long-term. R hip MRI from today shows deformity of R femoral head with remodeling of he R acetabulum. Large joint effusion and pericapsular edema, as well as edema in the surrounding musculature, suggestive of septic joint. Pt states that she does not feel pain. WBC 9.1, however CRP was 29 two days ago. ESR >130. was admitted for further evlauation. ortho was consulted, case discused with Kendra March and DR. Sterling. she underwent Ir guided aspiration and was only able to get 3cc of bloody fluid which showed no growth in the culture and was cancelled. given that she has been on multple antibiotics prior to admission and has chronic avascular necrosis of hip joint with significant destruction, as per ortho she would need assisted IV antibiotics irrespective of the synovial fuid studies results. hence, she has been started on IV cefepime and IV vanco emperically( was discussed with ID [employer] CAR[employer] SPECIALIST SUPERVISOR) and will f/u as OP with DR. Ramirez who is the primary orthopedic surgeon. the vanco trough anat be monitored at the SNF and will be monitored for vanco toxicity, she is being dc in stable condition. Hospital course: Ms. Mccarty is a 61 year old female Time spent discussing smoking cessation with patient: more than 10 minutes - Time Spent with Patient Total time spent providing and/or coordinating discharge services: Greater than 30 minutes - Constitutional Vitals: Temp Pulse Resp BP Pulse Ox 98.1 F 84 18 154/68 93 L 11/26/16 15:08 11/26/16 15:08 11/26/16 15:08 11/26/16 15:08 11/26/16 15:08 General appearance: Present: cooperative, A&O X 3, pleasant, answers questions appropriately Exam: - Head Head exam: Present: normal inspection - Neck Neck exam general surgery: Present: normal inspection. Absent: lymphadenopathy , tenderness - Respiratory Respiratory exam: Present: decreased breath sounds, CTAB. Absent: chest wall tenderness, respiratory distress, rhonchi, stridor, wheezes - Cardiovascular Cardiovascular exam: Present: RRR, +S1, +S2. Absent: diastolic murmur, systolic murmur - GI/Abdominal GI/Abdominal exam: Present: distended, normal bowel sounds, soft. Absent: hepatomegaly, tenderness - Extremities Exam Extremities exam: Present: pedal edema, warm, radial pulses palpable and symetrical. Absent: cyanotic, joint swelling, normal capillary refill, normal inspection, tenderness Additional comments: Pt has +3 edema to BLE and palpable pedal pulses sofie. - Neurological Exam Neurological exam: Present: alert, oriented X3. Absent: strengths equal and symetr throughout, facial droop, speech deficit - VTE Documentation of Mechanical Device: Venous foot pump, device
--- NOTE | 2016-11-26 15:50 | Physician Discharge Referral ---
ExtendedCare Referral Info Transfer To: SNF Provider in Charge: judit bowman Institutional Level of Care: Intermediate - MR - Diagnosis (1) Septic arthritis Status: Acute (2) Atrial fibrillation Status: Acute (3) Elevated INR Status: Acute (4) Brown-Sequard syndrome Status: Acute - Transfer Medications Prescriptions: HYDROcodone/Acet 5/325 mg [[place] 5-325 mg] 1 tab PO Q4HR PRN #30 tablet PRN Reason: Moderate Pain (4-6) Cefepime HCl [Maxipime] 1,000 mg IVPB Q8HR 14 Days Vancomycin [Vancocin] 1,000 mg IV Q12HR 28 Days Home Medications: Multivitamin [Multi-Day Vitamins] 1 each PO DAILY 09/14/16 [History] Pravastatin Sodium 80 mg PO HS 09/14/16 [History] Diltiazem CD (24hr) [Cardizem CD] 300 mg PO DAILY 30 Days 09/19/16 [Rx] Insulin DETEMIR [Levemir] 20 unit SQ HS [id number] 09/19/16 [Rx] Nystatin POWDER [Nystop] 1 appl TP BID 30 Days 09/19/16 [Rx] Cyclobenzaprine [Flexeril] 10 mg PO TID@0900,1700,2300 tablet 10/25/16 [Rx] Gabapentin [Neurontin] 300 mg PO BID #14 capsule 10/25/16 [Rx] Glimepiride [Amaryl] 3 mg PO DAILY #0 10/25/16 [Rx] HYDROcodone/Acet 5/325 mg [[place] 5-325 mg] 1 tab PO Q4HR PRN #40 tablet [Rx] Warfarin [Coumadin] 2 mg PO DAILY@1800 tablet 10/25/16 [Rx] Warfarin [Coumadin] 5 mg PO DAILY@1800 tablet 10/25/16 [Rx] Acetaminophen [Tylenol] 650 mg PO Q6HR PRN 11/23/16 [History] Dimethicone/Zinc Oxide [Inzo Zinc Oxide Barrier Cream] 1 appl TP BID 11/23/16 [ History] Docusate [Colace] 100 mg PO BID 11/23/16 [History] GuaiFENesin/Dextromethorphan [Robafen Dm Cgh-Chest Alexis Syrp] 10 ml PO TID PRN 11/23/16 [History] Insulin LISPRO [HumaLOG] 2 - 10 units SQ ACHS 11/23/16 [History] Magnesium Hydroxide [Milk of Magnesia] 2,400 mg PO DAILY PRN 11/23/16 [History] Omeprazole [PriLOSEC] 20 mg PO DAILY 11/23/16 [History] Ondansetron HCl [Zofran] 4 mg PO Q4H PRN 11/23/16 [History] Optifoam 1 appl TP Q72H 11/23/16 [History] Sertraline [Zoloft] 150 mg PO DAILY 11/23/16 [History] Cefepime HCl [Maxipime] 1,000 mg IVPB Q8HR 14 Days 11/26/16 [Rx] HYDROcodone/Acet 5/325 mg [[place] 5-325 mg] 1 tab PO Q4HR PRN #30 tablet [Rx] Vancomycin [Vancocin] 1,000 mg IV Q12HR 28 Days 11/26/16 [Rx] Allergies/Adverse Reactions: Allergies metformin Allergy (Verified 09/14/16 10:31) Diarrhea - Respiratory Orders Smoking Cessation: Smoking cessation has been advised. For more information, call the [place] Tobacco Quit Line at 7-486-APTN-NOW. - Lab Orders Lab Orders: Other (include drug levels w/frequency) (will need vanco trough levels drawn to monitor for vanco toxicity.) - Advance Directives Code Status: Full Code - Mobility Orders Chair - Rehabiliation Orders Rehab Potential: Fair Rehab Orders: Evaluation for Physical Therapy, Evaluation for Occupational Therapy - Diet Orders Regular CERTIFICATION: I certify that the transfer of the above named patient to an Extended Care Facility is necessary for the continuing treatment of the diagnosis listed. The above information is true and accurate reflection of patient's current condition. Confidential - Redisclosure prohibited without a patient's written consent.
[2016-11-26] MEDS: [UNRECOGNIZED DRUG - SUPPLY] TP SCH (16:17)
[2016-11-26] MEDS ORDERED: Aminoglycoside Consult 1 EACH MC ONE (16:45)
== END 2016-11-26 16:46 ==
LOC: 3NENU 14:12 → EMEROO 14:12 → 3NENU 16:23
PROVIDERS: ADMIT Internal Medicine; ATTEND Internal Medicine Endocrinology, Diabetes & Metabolism

== ENCOUNTER 2017-10-05 11:33 | Observation (INO) ==
--- NOTE | 2017-10-05 12:24 | Emergency Department Note ---
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 Patient's morbidly obese. Patient notes right sided hip swelling over the past few days. Patient Sawyer is able to move more of her right lower leg and she can currently. Patient continues to have no feeling of her right lower leg as this is a consequence of the Brown- Sequard. Patient states that she has not had any fevers. Patient denies any abdominal pain. No nausea or vomiting. No chest pain. Patient denies any pain. Patient does live at home with home health nursing as well as family. Patient does have resources available at home. Patient was in an extended care facility for rehabilitation temporarily. Pain Scale: 0 - Related Data Home Medications Medication Instructions Recorded Confirmed Multivitamin [Multi-Day Vitamins] 1 each PO DAILY 09/14/16 10/05/17 Pravastatin Sodium 80 mg PO HS 09/14/16 10/05/17 Insulin LISPRO [HumaLOG] 2 - 10 units SQ ACHS 11/23/16 10/05/17 Sertraline [Zoloft] 150 mg PO DAILY 11/23/16 10/05/17 Previous Rx's Medication Instructions Recorded Diltiazem CD (24hr) [Cardizem CD] 300 mg PO DAILY 30 Days cap.er.24h 09/19/16 Insulin DETEMIR [Levemir] 20 unit SQ HS [id number] 09/19/16 Nystatin POWDER [Nystop] 1 appl TP BID 30 Days bottle 09/19/16 Gabapentin [Neurontin] 300 mg PO BID #14 capsule 10/25/16 Warfarin [Coumadin] 2 mg PO DAILY@1800 tablet 10/25/16 Warfarin [Coumadin] 5 mg PO DAILY@1800 tablet 10/25/16 Allergies Allergy/AdvReac Type Severity Reaction Status Date / Time metformin Allergy Diarrhea Verified 09/14/16 10:31 All systems ED: reviewed and negative except as stated. Constitutional: Reports: as per HPI. Denies: fever Eyes: Reports: as per HPI ENT ED: Reports: as per HPI Cardiovascular: Reports: as per HPI. Denies: chest pain Respiratory: Reports: as per HPI. Denies: cough, dyspnea Gastrointestinal: Reports: as per HPI. Denies: abdominal pain, nausea, vomiting Genitourinary: Reports: as per HPI Musculoskeletal: Reports: as per HPI Integumentary: Reports: as per HPI Neurological: Reports: as per HPI, numbness Psychiatric: Reports: as per HPI Endocrine: Reports: as per HPI Hematological/Lymphatic: Reports: as per HPI Allergic/Immunologic: Reports: as per HPI Past Medical History - Past Medical History Medical history: Reports: diabetes, hyperlipidemia, hypertension, other Surgical history: Reports: , carotid endarterectomy, orthopedic, other Psychiatric history: Reports: depression LAUNDRY AGENT history: Reports: no LAUNDRY AGENT history - Social History Smoking Status: Never smoker Smokeless Tobacco Status: No Alcohol use: Reports: rarely Drug use: Reports: none Physical Exam - General Limitations: no limitations General appearance: alert, in no apparent distress, obese - Head Head exam: atraumatic - Eye Eye exam: Present: normal appearance, PERRL, EOMI - ENT ENT exam: normal exam, mucous membranes moist - Neck Neck exam: Present: normal inspection - Chest Chest inspection: Present: normal inspection, symmetric chest wall rise - Respiratory Respiratory exam: Present: normal lung sounds bilaterally. Absent: respiratory distress - Cardiovascular Cardiovascular exam: Present: regular rate, normal rhythm. Absent: systolic murmur - Abdominal Exam Abdominal exam: Present: soft, Non-Tender. Absent: guarding, rebound - Expanded Lower Extremity Exam Hip/Pelvis exam: Present: other (Morbidly obese with extensive asymmetric right- sided tissue. Difficult to assess swallowing versus patient's body habitus. Patient is neurovascularly intact distally.Plain flexion of the right foot. Patient's sensation is at baseline of the right leg. There is no erythema or crepitus are concerns of deep space infection.) - Neurological Exam Neurological exam: Present: alert, oriented X3 - Skin Skin exam: Present: warm, dry, intact, normal color Course Course Narrative: Patient seen and examined. Patient is morbidly obese. Difficult to assess exact swelling of the right hip. Patient will get basic lab work including renal function as well as coags. Patient will ultimately need CT imaging of the right leg to assess for patency of the vascular system. - Reevaluation(s) Reevaluation #1: Seen and evaluated by social work. Patient does have appropriate resources available at home. Time: 13:11 Reevaluation #2: Results of CAT scan report revealed a large right hip joint effusion. Patient did on plan of care. Will discuss with orthopedics regarding the recommendations regarding this joint effusion. Patient continues to deny any pain. Time: 16:44 - Consultations Consultation #1: Spoke with Dr. Ramirez, recommends to admit to the hospitalist and have IR consult. Attempted to contact IR from the emergency department however they were unavailable at this time. Recommend to manage the coagulation. No antibiotics until the patient has fluid obtained for appropriate culture. Patient is stable. Time: 16:48 Vital Signs Temperature 98.8 F 10/05/17 11:35 Pulse Rate 74 10/05/17 11:35 Respiratory Rate 20 10/05/17 11:35 Blood Pressure 122/68 10/05/17 11:35 O2 Sat by Pulse Oximetry 97 10/05/17 11:35 Temperature 98.5 F 10/06/17 08:15 Pulse Rate 83 10/06/17 08:15 Respiratory Rate 16 10/06/17 08:15 Blood Pressure 104/68 10/06/17 08:15 O2 Sat by Pulse Oximetry 98 10/06/17 08:15 Oxygen Delivery Oxygen Delivery Room Air Medical Decision Making - [facility] Narrative Medical decision making narrative: 61-year-old female presents for evaluation of right hip swelling. Patient does not feel any pain or sensation due a history of Brown-Sequard. Patient's labs reviewed shows no white count. Patient's INR was supratherapeutic. Given the fact that the patient had a right hip CT which showed a right hip effusion concerns of possible blood. Patient will need IR drainage of the right hip. Spoke with orthopedics recommended hospital admission and IR intervention. Also recommend reversal of anticoagulation to perform the procedure. Patient is taking the Coumadin for her A. fib and currently the patient sinus rhythm. Patient does not appear septic and a joint effusion is likely secondary to blood. Antibiotics were not given as the patient is clinically stable and is likely to get fluid for culture of the right hip. Patient's resting comfortably in emergency department. - Medical Records Medical records reviewed: Yes I reviewed the patient's medical records. - Lab Data Lab results reviewed: Yes I reviewed the patient's lab results. Result diagrams: 10/05/17 12:34 10/05/17 12:34 Lab Results 10/05/17 10/05/17 10/05/17 Range/Units 12:34 12:34 12:34 WBC 6.6 (4.3-11.1) K/mcL RBC 4.31 (3.82-4.97) M/mcL Hgb 11.7 (11.5-15.4) g/dL Hct 38.1 (35.3-44.9) % MCV 88.4 (83.0-100.0) fL MCH 27.1 L (28.0-33.3) pg MCHC 30.7 L (31.6-35.5) g/dL RDW 15.5 H (11.5-14.5) % Plt Count 377 (140-400) K/mcL MPV 8.3 L (9.4-12.4) fL Immature Gran % 0.3 (0-4) % Seg Neutrophils % 65.4 % Lymphocytes % 25.0 % Monocytes % 6.5 % Eosinophils % 2.3 % Basophils % 0.5 % Neutrophils # 4.4 (1.6-8.9) K/mcL Lymphocytes # 1.7 (0.6-4.6) K/mcL Monocytes # 0.4 (0.0-1.3) K/mcL Eosinophils # 0.2 (0.0-0.6) K/mcL Basophils # 0.0 (0.0-0.2) K/mcL ESR (0-15) mm/hr PT 46.7 H* (9.4-12.1) Seconds INR 4.2 APTT 56.3 H (26.0-36.0) Seconds Sodium 139 (136-145) mEq/L Potassium 4.2 (3.5-5.1) mEq/L Chloride 105 (98-107) mEq/L Carbon Dioxide 28 (23-29) mEq/L BUN 15 (8-23) mg/dL Creatinine 0.58 L (0.60-1.20) mg/dL Est GFR ( Amer) > 60 (> 60) Est GFR (Non-Af Amer) > 60 (> 60) BUN/Creatinine Ratio 26 (6-26) Glucose 164 H (70-105) mg/dL POC Glucose (58-89) Calculated Osmolality 292 (280-300) Calcium 8.9 (8.6-10.3) mg/dL C-Reactive Protein 14 H (Less than 10) mg/L 10/05/17 10/05/17 Range/Units 12:34 20:00 WBC (4.3-11.1) K/mcL RBC (3.82-4.97) M/mcL Hgb (11.5-15.4) g/dL Hct (35.3-44.9) % MCV (83.0-100.0) fL MCH (28.0-33.3) pg MCHC (31.6-35.5) g/dL RDW (11.5-14.5) % Plt Count (140-400) K/mcL MPV (9.4-12.4) fL Immature Gran % (0-4) % Seg Neutrophils % % Lymphocytes % % Monocytes % % Eosinophils % % Basophils % % Neutrophils # (1.6-8.9) K/mcL Lymphocytes # (0.6-4.6) K/mcL Monocytes # (0.0-1.3) K/mcL Eosinophils # (0.0-0.6) K/mcL Basophils # (0.0-0.2) K/mcL ESR 124 H (0-15) mm/hr PT (9.4-12.1) Seconds INR APTT (26.0-36.0) Seconds Sodium (136-145) mEq/L Potassium (3.5-5.1) mEq/L Chloride (98-107) mEq/L Carbon Dioxide (23-29) mEq/L BUN (8-23) mg/dL Creatinine (0.60-1.20) mg/dL Est GFR ( Amer) (> 60) Est GFR (Non-Af Amer) (> 60) BUN/Creatinine Ratio (6-26) Glucose (70-105) mg/dL POC Glucose 124 H (58-89) Calculated Osmolality (280-300) Calcium (8.6-10.3) mg/dL C-Reactive Protein (Less than 10) mg/L - Radiology Data Radiology results reviewed: Yes I reviewed the patient's radiology results. Hip CT 10/05/17 13:55 IMPRESSION: 1. Chronic dysplastic or destructive changes at the right hip which are relatively similar compared with plain radiographs of 11/22/2016. Large right hip joint effusion. Superimposed acute septic right hip joint is difficult to exclude on the basis of this exam in the appropriate clinical setting. 2. Mild to moderate left hip osteoarthrosis. Diffuse osteopenia. D/ / Marshall Carlson MD / Marshall Carlson MD Interpreting Provider: Marshall Carlson MD - EKG Data EKG #1 EKG attestation: Yes I reviewed and interpreted this EKG. EKG shows normal: sinus rhythm Rate: normal Rhythm: NSR [place]/QRS: normal When compared to previous EKG there are: no significant changes Interpretation: no acute changes S.B.A.RPrabhjot - Серегй.Haley Situation: Demographics Background: Presenting Complaint Assessment: Vital Signs, Course and respsone to treatment, Patient/Family Expectation Recommendation: Barrier(s) to disposition, Recommendation based on pending studies, treatments, or consults S.B.A.Jamie Report Given to: Dr. Martina Todd Repor Time: 17:20 Attestation Statement - Attestation Attestation: I examined this patient and my medical decision-making was reviewed with the Resident Physician. I agree with the documented findings, disposition and treatment plan as described except to the extent set forth below. 61-year-old female presents ED because of swelling of her right hip and thigh. 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 She has noticed progressive increased swelling around the right hip over the past several days. Denies pain. No fevers or chills. No recent trauma. She has had remote right knee arthroplasty and has a known fracture about the right hip. She has been non- weightbearing for greater than a year. She is currently taking Coumadin for intermittent atrial fibrillation. Morbidly obese female in no apparent distress. Oropharynx is clear mucous murmurs moist. Chest is clear to auscultation bilaterally. Abdomen soft, nondistended and nontender. Lower extremities with marked edema bilaterally but more so around the right hip. No overlying erythema, crepitus or cellulitis. Distal pulses are symmetric. No sensation of the right lower extremity. She was supratherapeutic with an INR of 4.5. Renal function was preserved. She was sent for CT of the affected area and was found to have a large effusion about the right hip. Case was discussed with her orthopedic, Dr. Ramirez. He recommended reversing the Coumadin and admit her for aspiration per interventional radiology. No antibiotics or further treatment or initiated this point.
[2017-10-05 12:45] LABS: Basophils % 0.5 %; Eosinophils # 0.2 K/mcL (0.0-0.6); Eosinophils % 2.3 %; Hematocrit 38.1 % (35.3-44.9); Hemoglobin 11.7 g/dL (11.5-15.4); Immature Granulocytes % 0.3 % (0-4); Lymphocytes # 1.7 K/mcL (0.6-4.6); Mean Corpuscular HGB Conc 30.7 g/dL (31.6-35.5); Mean Corpuscular Hemoglobin 27.1 pg (28.0-33.3); Mean Corpuscular Volume 88.4 fL (83.0-100.0); Mean Platelet Volume 8.3 fL (9.4-12.4); Monocytes # 0.4 K/mcL (0.0-1.3); Monocytes % 6.5 %; Neutrophils # 4.4 K/mcL (1.6-8.9); Platelet Count 377 K/mcL (140-400); Red Blood Count 4.31 M/mcL (3.82-4.97); Red Cell Distribution Width 15.5 % (11.5-14.5); Segmented Neutrophils % 65.4 %
[2017-10-05 12:48] LABS: INR 4.2
[2017-10-05 12:50] LABS: Activated Partial Thrombo Time 56.3 Seconds (26.0-36.0)
[2017-10-05 13:00] LABS: Prothrombin Time 46.7 Seconds (9.4-12.1)
[2017-10-05 13:41] LABS: BUN/Creatinine Ratio 26 (6-26); Blood Urea Nitrogen 15 mg/dL (8-23); Calcium 8.9 mg/dL (8.6-10.3); Carbon Dioxide 28 mEq/L (23-29); Chloride 105 mEq/L (98-107); Glucose 164 mg/dL (70-105); Osmolality,Calculated 292 (280-300); Potassium 4.2 mEq/L (3.5-5.1); Sodium 139 mEq/L (136-145); eGFR For African Americans > 60 (> 60); eGFR For Non-African Americans > 60 (> 60)
[2017-10-05] MEDS ORDERED: *HR* Phytonadione 5 MG TABLET PO ONE (17:06)
[2017-10-05 17:09] LABS: C-Reactive Protein 14 mg/L (Less than 10)
[2017-10-05] MEDS ORDERED: Insulin DETEMIR 100 UNIT/ML X5UNITS SQ SCH (23:15)
[2017-10-05] MEDS ORDERED: Naloxone 0.4 MG/ML INJ IVP PRN (23:16)
[2017-10-05] MEDS ORDERED: Dextrose Gel 15 GM/37.5 ML TUBE PO PRN ×2 (23:21)
[2017-10-05] MEDS ORDERED: *HR* Dextrose 50 % in Water (Syg) 50 ML SYRINGE IVP PRN (23:21)
[2017-10-05] MEDS ORDERED: D5% in Water 1,000 ML IVC PRN (23:21)
--- NOTE | 2017-10-05 23:25 | Internal Med History&Physical ---
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 (3) Atrial fibrillation Current visit: No Status: Acute hold coumadin for procedure Qualifiers: Atrial fibrillation type: paroxysmal Qualified Code(s): I48.0 - Paroxysmal atrial fibrillation (4) Diabetes mellitus Current visit: No Status: Chronic hold qEvening 22 U lantus due to NPO overnight ISS for now Qualifiers: Diabetes mellitus type: type 2 Diabetes mellitus complication status: without complication Diabetes mellitus medical terminologist insulin use: with medical terminologist use Qualified Code(s): E11.9 - Type 2 diabetes mellitus without complications ; Z79.4 - continuous churn buttermaker (current) use of insulin; Z79.4 - continuous churn buttermaker (current) use of insulin; Z79.4 - retirement (current) use of insulin; Z79.4 - retirement ( current) use of insulin (5) Morbid obesity with BMI of 70 and over, adult Current visit: No Status: Acute Internal Medicine - H&P: HPI Chief complaint: Right hip swelling History of present illness: Ms. Mccarty is a 61 year old female who presents with right hip swelling She has a hx of brown sequard syndrome and has no sensation from her right waist down. Has hx of AFib on coumadin. Has hx of knee replacement 2/2 fall with broken femur. Also had right hip surgery for transportation related fall approx 13 months ago. Morbid obesity. Wheelchair bound. She presents with 3 days hx of progressive right hip swelling. No improving or worsening factors. She denies any fever/chills but review notes of mild night sweats. She is insensate in that region due to brown sequard and is unable to appreciate pain. CT/CT hip RT w con IMPRESSION: 1. Chronic dysplastic or destructive changes at the right hip which are relatively similar compared with plain radiographs of 11/22/2016. Large right hip joint effusion. Superimposed acute septic right hip joint is difficult to exclude on the basis of this exam in the appropriate clinical setting. 2. Mild to moderate left hip osteoarthrosis. Diffuse osteopenia. Past Med Surg Social Fam HX - Past Medical History Medical history: diabetes, hyperlipidemia, hypertension, other Psychiatric history: depression - Past Surgical History Surgical History: , carotid endarterectomy, orthopedic, other - Social History Smoking Status: Never smoker Smokeless Tobacco Status: No Alcohol use: rarely Drug use: none - Family History Father Hx Family Cardiac Disorders: Yes (CAD) Hx Family Endocrine Disorder: Yes (Diabetes) Mother Hx Family Cardiac Disorders: Yes (HTN) Internal Medicine - H&P: Meds Multivitamin [Multi-Day Vitamins] 1 each PO DAILY 09/14/16 [History] Pravastatin Sodium 80 mg PO HS 09/14/16 [History] Diltiazem CD (24hr) [Cardizem CD] 300 mg PO DAILY 30 Days cap.er.24h 09/19/16 [ Rx] Insulin DETEMIR [Levemir] 20 unit SQ HS [id number] 09/19/16 [Rx] Nystatin POWDER [Nystop] 1 appl TP BID 30 Days bottle 09/19/16 [Rx] Gabapentin [Neurontin] 300 mg PO BID #14 capsule 10/25/16 [Rx] Warfarin [Coumadin] 2 mg PO DAILY@1800 tablet 10/25/16 [Rx] Warfarin [Coumadin] 5 mg PO DAILY@1800 tablet 10/25/16 [Rx] Insulin LISPRO [HumaLOG] 2 - 10 units SQ ACHS 11/23/16 [History] Sertraline [Zoloft] 150 mg PO DAILY 11/23/16 [History] 3 Allergy/AdvReac Type Severity Reaction Status Date / Time metformin Allergy Diarrhea Verified 09/14/16 10:31 All Systems PM: A 10-system review of systems was performed and is negative for pertinent findings except as documented above in the HPI. Review of systems: ROS 14 point review of systems reviewed as best as possible given presentation. Pertinent positive or negative as per HPI or otherwise reviewed as negative - Constitutional Vitals: Temp Pulse Resp BP Pulse Ox 98.4 F 79 19 109/73 97 10/05/17 20:42 10/05/17 20:42 10/05/17 20:42 10/05/17 20:42 10/05/17 20:42 Exam: General - AAO x 3 Psych - Appropriate affect/speech. No agitation Eyes - JAMAL. Eye lids intact. No scleral icterus Neuro - No gross central CN deficits on inspection Heart - Sinus. RRR. S1 and S2 present. No added HS/murmurs appreciated. No elevated JVD appreciated. Lung - Adequate air entry b/l, No crackles/wheezes appreciated GI - Soft, non-tender. No hepatosplenomegaly/ascites. BS+ MSK - Morbid obesity with surgical scars and altered anatomy. Has right hip swelling, protusion seen but insensate Internal Med - H&P Results - Labs CBC & Chem 7: 10/05/17 12:34 10/05/17 12:34
[2017-10-06] MEDS: Insulin LISPRO 300 UNITS/3 ML VIAL SQ SCH ×4 (01:30→18:04)
[2017-10-06 04:52] LABS: INR 2.8; Prothrombin Time 30.4 Seconds (9.4-12.1)
[2017-10-06 04:54] LABS: Activated Partial Thrombo Time 45.4 Seconds (26.0-36.0)
[2017-10-06] MEDS ORDERED: 0.9 % Sodium Chloride 500 ML ONE (05:39)
[2017-10-06] MEDS ORDERED: 0.9 % Sodium Chloride 500 ML IVC SCH (06:00)
[2017-10-06] MEDS ORDERED: 0.9 % Sodium Chloride 1,000 ML IVC SCH (06:00)
--- NOTE | 2017-10-06 06:46 | Orthopedic Consult Note ---
Date of Encounter: 10/06/17 Time of Encounter: 06:45 History of Present Illness HPI: Ms. Mccarty is a 61 year old female Admitted with a right hip effusion. Patient with an elevated ESR and a CRP of 14. Patient admitted with an INR 4.8. INR now 2. Patient is morbidly obese poor surgical candidate. Recommendation is interventional radiology aspiration of right hip and treat with nonoperative management based on the findings. Past Med Surg Social Fam HX - Past Medical History Medical history: diabetes, hyperlipidemia, hypertension, other Psychiatric history: depression - Past Surgical History Surgical History: , carotid endarterectomy, orthopedic, other - Social History Smoking Status: Never smoker Smokeless Tobacco Status: No Alcohol use: rarely Drug use: none - Family History Father Hx Family Cardiac Disorders: Yes (CAD) Hx Family Endocrine Disorder: Yes (Diabetes) Mother Hx Family Cardiac Disorders: Yes (HTN) Medications and Allergies Multivitamin [Multi-Day Vitamins] 1 each PO DAILY 09/14/16 [History] Pravastatin Sodium 80 mg PO HS 09/14/16 [History] Diltiazem CD (24hr) [Cardizem CD] 300 mg PO DAILY 30 Days cap.er.24h 09/19/16 [ Rx] Insulin DETEMIR [Levemir] 20 unit SQ HS [id number] 09/19/16 [Rx] Nystatin POWDER [Nystop] 1 appl TP BID 30 Days bottle 09/19/16 [Rx] Gabapentin [Neurontin] 300 mg PO BID #14 capsule 10/25/16 [Rx] Warfarin [Coumadin] 2 mg PO DAILY@1800 tablet 10/25/16 [Rx] Warfarin [Coumadin] 5 mg PO DAILY@1800 tablet 10/25/16 [Rx] Insulin LISPRO [HumaLOG] 2 - 10 units SQ ACHS 11/23/16 [History] Sertraline [Zoloft] 150 mg PO DAILY 11/23/16 [History] 3 Allergy/AdvReac Type Severity Reaction Status Date / Time metformin Allergy Diarrhea Verified 09/14/16 10:31 All Systems Reviewed: A 10-system review of systems was performed and is negative for pertinent findings except as documented above in the HPI. Physical Exam - Constitutional Vitals: Temp Pulse Resp BP Pulse Ox 97.9 F 88 15 95/60 94 10/06/17 00:00 10/06/17 00:00 10/06/17 00:00 10/06/17 00:00 10/06/17 00:00 Results - Labs Result Diagrams: 10/05/17 12:34 10/05/17 12:34 Labs: Abnormal lab results MCH 27.1 pg (28.0-33.3) L 10/05/17 12:34 MCHC 30.7 g/dL (31.6-35.5) L 10/05/17 12:34 RDW 15.5 % (11.5-14.5) H 10/05/17 12:34 MPV 8.3 fL (9.4-12.4) L 10/05/17 12:34 ESR 124 mm/hr (0-15) H 10/05/17 12:34 PT 30.4 Seconds (9.4-12.1) H 10/06/17 03:47 APTT 45.4 Seconds (26.0-36.0) H 10/06/17 03:47 Creatinine 0.58 mg/dL (0.60-1.20) L 10/05/17 12:34 Glucose 164 mg/dL (70-105) H 10/05/17 12:34 POC Glucose 140 (58-89) H 10/06/17 06:19 C-Reactive Protein 14 mg/L (Less than 10) H 10/05/17 12:34 All other labs normal. Consult Discharge Plan - Plan Referrals: Freddie Rodriguez MD [Primary Care Provider] -
--- NOTE | 2017-10-06 08:51 | Electrocardiograph Report ---
[address] [address] Test Date: 2017-10-05 Pat Name: Monica Mccarty Department: 102 Room: [facility] Gender: F Learning And Development Analyst: Charleen : 1955 Requested By: Cayden Jones Order Number: [id number] Reading MD: Ang Middleton MD Measurements Intervals [place] Rate: 69 P: 47 WA: 209 QRS: 31 QRSD: 91 T: 20 QT: 405 QTc: 424 Interpretive Statements SINUS RHYTHM BASELINE ARTIFACT Electronically Signed On 10-06-2017 8:49:32 EST by Ang Middleton MD
[2017-10-06] MEDS ORDERED: 0.9 % Sodium Chloride 250 ML ONE (11:37)
[2017-10-06] MEDS: Gabapentin 300 MG CAPSULE PO SCH ×2 (11:59→20:07)
[2017-10-06] MEDS: Diltiazem CD (24hr) 300 MG CAPSULE PO SCH (11:59)
--- NOTE | 2017-10-06 13:26 | Event Note ---
Date of Encounter: 10/06/17 Time of Encounter: 11:50 Orthopedics - Checked on patient, no current concerns. pain control adequate. Dr. Ramirez evaluated patient this morning and recommended IR for drainage of right hip effusion. Patient about to receive FFP for elevated INR and then IR plans to do aspiration this afternoon. Plan for nonoperative management based on findings.
[2017-10-06 14:06] LABS: INR 1.5; Prothrombin Time 16.6 Seconds (9.4-12.1)
[2017-10-06 14:09] LABS: Activated Partial Thrombo Time 37.6 Seconds (26.0-36.0)
--- NOTE | 2017-10-06 16:24 | Internal Med Progress Note ---
Date of Encounter: 10/06/17 Time of Encounter: 12:20 - Assessment and plan (1) Right hip joint effusion Current Visit: Yes Status: Acute Assessment and plan: Plan for arthrocentesis. Unable to do this morning due to elevated INR. We will give FFP and recheck INR. Plan for procedure later. Orthopedics following. CRP only slightly elevated. No signs of acute infection at this time. No indication for antibiotics. (2) Morbid obesity with BMI of 60.0-69.9, adult Current Visit: Yes Status: Chronic (3) Atrial fibrillation Current Visit: Yes Status: Chronic Assessment and plan: In normal sinus rhythm. Was on and correlation with Coumadin. Now reversed for planned procedure. We will resume Coumadin after procedure has been done. Qualifiers: Atrial fibrillation type: paroxysmal Qualified Code(s): I48.0 - Paroxysmal atrial fibrillation (4) Brown-Sequard syndrome Current Visit: Yes Status: Chronic (5) Diabetes mellitus Current Visit: Yes Status: Chronic Assessment and plan: Fairly controlled. Continue current insulin regimen. Qualifiers: Diabetes mellitus type: type 2 Diabetes mellitus complication status: without complication Diabetes mellitus care home insulin use: with care home use Qualified Code(s): E11.9 - Type 2 diabetes mellitus without complications ; Z79.4 - superintendent marine oil terminal (current) use of insulin; Z79.4 - superintendent marine oil terminal (current) use of insulin; Z79.4 - longterm (current) use of insulin; Z79.4 - longterm ( current) use of insulin - Subjective Interval history: Patient is lying in bed. Appears comfortable. No new complaints at this time. No fever or chills reported overnight. - Constitutional Vitals: Temp Pulse Resp BP Pulse Ox 98.0 F 73 16 119/66 96 10/06/17 12:46 10/06/17 12:46 10/06/17 12:46 10/06/17 12:46 10/06/17 12:46 General appearance: Present: cooperative, A&O X 3, morbidly obese, answers questions appropriately - Respiratory Respiratory exam: Present: CTAB. Absent: accessory muscle use, rales, rhonchi, wheezes - Cardiovascular Cardiovascular exam: Present: RRR, +S1, +S2. Absent: diastolic murmur, gallop, rubs, systolic murmur - GI/Abdominal GI/Abdominal exam: Present: normal bowel sounds, soft, no peritoneal signs. Absent: distended, tenderness - Extremities Exam Extremities exam: Present: warm, radial pulses palpable and symmetrical. Absent : calf tenderness, cyanotic, pedal edema Additional comments: Right hip swelling. Without any tenderness - Neurological Exam Neurological exam: Present: alert, CN II-XII intact, oriented X3. Absent: facial droop, speech deficit - Skin Skin exam: Present: dry, intact Internal Medicine: Result - Labs CBC & Chem 7: 10/05/17 12:34 10/05/17 12:34 - ABG Interpretation ABG results: PT/INR, D-dimer PT 16.6 Seconds (9.4-12.1) H 10/06/17 13:53 - VTE Documentation of Mechanical Device: Venous foot pump, device Consult Discharge Plan - Plan Referrals: Freddie Rodriguez MD [Primary Care Provider] - - Attending Attestation A review by [facility] and a member of the utilization review committee has determined that the status is to be changed to observation using condition code 44. I, Monica Lee, I am in agreement that the status is to be changed to observation.
[2017-10-07] MEDS: Insulin LISPRO 300 UNITS/3 ML VIAL SQ SCH ×3 (00:27→13:52)
[2017-10-07 02:36] LABS: INR 1.3
[2017-10-07] MEDS: Gabapentin 300 MG CAPSULE PO SCH (10:39)
[2017-10-07] MEDS: Diltiazem CD (24hr) 300 MG CAPSULE PO SCH (10:40)
[2017-10-07 13:49] VITALS: BP 117/73
--- NOTE | 2017-10-07 14:19 | Discharge Summary ---
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 (5) Diabetes mellitus Priority: Secondary Status: Chronic Qualifiers: Diabetes mellitus type: type 2 Diabetes mellitus complication status: without complication Diabetes mellitus intermodal owner operator truck driver insulin use: with intermodal owner operator truck driver use Qualified Code(s): E11.9 - Type 2 diabetes mellitus without complications ; Z79.4 - intermodal owner operator truck driver (current) use of insulin; Z79.4 - intermodal owner operator truck driver (current) use of insulin; Z79.4 - intermodal owner operator truck driver (current) use of insulin; Z79.4 - intermodal owner operator truck driver ( current) use of insulin - Discharge Medications Home Medications: Pravastatin Sodium 80 mg PO HS 09/14/16 [History] Diltiazem CD (24hr) [Cardizem CD] 300 mg PO DAILY 30 Days cap.er.24h 09/19/16 [ Rx] Nystatin POWDER [Nystop] 1 appl TP BID 30 Days bottle 09/19/16 [Rx] Gabapentin [Neurontin] 300 mg PO BID #14 capsule 10/25/16 [Rx] Insulin LISPRO [HumaLOG] 2 - 10 units SQ ACHS PRN 11/23/16 [History] Sertraline [Zoloft] 150 mg PO DAILY 11/23/16 [History] Insulin DETEMIR [Levemir] 22 unit SQ HS 10/06/17 [History] Warfarin [Coumadin] 7.5 mg PO TUSA 10/06/17 [History] Warfarin [Coumadin] 10 mg PO SUMOWETHFR 10/06/17 [History] Allergies/Adverse Reactions: 3 Allergy/AdvReac Type Severity Reaction Status Date / Time metformin Allergy Diarrhea Verified 10/06/17 13:57 Date of admission: 10/05/17 17:57 Primary care physician: Freddie Rodriguez Consults: 10/05/17 23:26 Consult to Interventional Radiology [CONS] Routine Consulting Provider: Radiology Interventional Cols Reason for Consult: ortho rec IR aspiration for diagnostic purposes Call Completed: No 10/06/17 09:00 Consult to Pastoral Services [CONS] Routine Comment: Discharging clinician: Monica Lee Anticipated date of discharge: 10/07/17 - Patient Status Disposition: Home, Self-Care Condition: Good Functional capacity at discharge: independent ambulation Overall status at discharge: patient is progressing back to baseline - Discharge Instructions Instructions: Atrial Fibrillation (DC) Follow Up With: Freddie Rodriguez MD [Primary Care Provider] - (in 1-2 weeks) Geo Ramirez MD [Partnered Physician] - (in 1-2 weeks) - Diet and Activity Activity: increase activity as tolerated Diet: diabetic diet, low fat, low cholesterol, low salt diet Hospital course: Ms. Mccarty is a 61 year old female patient with history of morbid obesity, diabetes, Brown-Sequard syndrome, atrial fibrillation on anticoagulation with Coumadin who was hospitalized here with complaints of progressive right hip swelling. She was evaluated by CT scan and was found to have right hip joint effusion. Her CRP was slightly elevated but she did not have any leukocytosis. Given her chronic medical condition, she did not have any pain there either. Orthopedics recommended IR guided arthrocentesis. Patient's INR was supratherapeutic and so she received vitamin K and FFP to reverse it so that she could undergo the procedure. She underwent this procedure today. Very minimal amount of fluid was able to be aspirated. Gram stain of the fluid shows no WBC cells or bacteria. Cultures are pending. Patient had discussed her case with orthopedics. They recommended discharging the patient and having her follow up as outpatient for further management. Patient very likely may have had some hemorrhagic joint effusion due to supratherapeutic INR. No indication for antibiotics at this time as patient is nontoxic and has not had any leukocytosis or any other signs of septic arthritis. She will be discharged home today. - Time Spent with Patient Total time spent providing and/or coordinating discharge services: Less than 30 minutes (20 min) - Constitutional Vitals: Temp Pulse Resp BP Pulse Ox 97.7 F 79 16 117/73 96 10/07/17 13:47 10/07/17 13:47 10/07/17 13:47 10/07/17 13:47 10/07/17 13:47 General appearance: Present: cooperative, A&O X 3, morbidly obese, answers questions appropriately - Respiratory Respiratory exam: Present: CTAB. Absent: accessory muscle use, rales, rhonchi, wheezes - Cardiovascular Cardiovascular exam: Present: RRR, +S1, +S2. Absent: diastolic murmur, gallop, rubs, systolic murmur - GI/Abdominal GI/Abdominal exam: Present: normal bowel sounds, soft, no peritoneal signs. Absent: distended, tenderness - Extremities Exam Extremities exam: Present: warm, radial pulses palpable and symmetrical. Absent : calf tenderness, cyanotic, pedal edema Additional comments: right hip swelling - Skin Skin exam: Present: dry, intact - VTE Documentation of Mechanical Device: Venous foot pump, device
[2017-10-07] MEDS ORDERED: Warfarin perPT PO PRN (18:00)
[2017-10-07] MEDS ORDERED: *HR* Warfarin 7.5 MG TABLET PO ONE (18:00)
== END 2017-10-07 16:59 | disposition home or self-care (01) ==
LOC: 3NENU 11:33 → EMEROO 11:33 → 3NENU 19:16 → SUATTDRO 23:16
PROVIDERS: ADMIT Internal Medicine; ATTEND Internal Medicine